=== PATIENT | male | born 1940 | race Caucasian/White ===

== ENCOUNTER 2018-02-22 15:09 | Emergency (ER) | payer OTHER, MEDICARE ==
[~2018-02-22] VITALS: Ht 182.9 cm; Wt 70.8 kg
[~2018-02-22 15:09] MED LIST: ACYCLOVIR800 MG PO; ADVAIR HFA120 INHALA IH; ADVIL200 MG PO; ALBUTEROL SULF8.5 GM IH; ASPIR 8181 M1 PO; ATORVASTATIN CA20 MG PO; ATORVASTATIN CA40 MG PO; CARVEDILOL12.5 MG PO; CEFDINIR300 MG PO; CEFTIN500 MG PO; CENTRUM SILVER1 EAC3 PO; DOXYCYCLINE HY100 M3 PO; ELIQUIS5 MG PO; LISINOPRIL20 MG PO; LISINOPRIL5 MG PO; LO-DOSE ASPIRIN81 M1 PO; METOPROLOL TART25 MG PO; SOTALOL AF80 MG PO; SOTALOL80 MG PO; SPIRONOLACTONE25 MG PO; VITAMIN D-32000 UNI2 PO; VITAMIN D32000 UNIT PO
[2018-02-22] MEDS ORDERED: KEFLEX500 MG PO (19:03)
[2018-02-22 20:03] VITALS: BP 155/99
== END 2018-02-22 20:04 | disposition home or self-care (01) ==
LOC: EME 15:09
PROC: 0HQGXZZ Repair Left Hand Skin, External Approach (ICD-10-PCS; principal; 2018-02-22)
DX: S61.217A Laceration without foreign body of left little finger without damage to nail, initial encounter (principal); S61.215A Laceration without foreign body of left ring finger without damage to nail, initial encounter; S61.213A Laceration without foreign body of left middle finger without damage to nail, initial encounter; W31.89XA Contact with other specified machinery, initial encounter; I48.91 Unspecified atrial fibrillation; Z79.01 Long term (current) use of anticoagulants; Z79.82 Long term (current) use of aspirin
CPT/HCPCS: 73130; 99281; 99284; S0020